=== PATIENT | male | born 1960 | race Caucasian/White ===

== ENCOUNTER 2021-06-13 13:43 | Emergency (ER) ==
[2021-06-13 14:27] LABS: #Basophils 0.1 thou/uL (0.0-0.2); #Eosinphils 0.3 thou/uL (0.0-0.7); #Lymphocytes 1.2 thou/uL (1.20-3.40); #Monocytes 0.6 thou/uL (0.11-0.59); #Neutrophils 5.2 thou/uL (1.40-6.50); %Basophils 1.2 % (0.0-1.0); %Eosinophils 3.5 % (0.0-10.0); %Lymphocytes 16.2 % (21.0-51.0); %Monocytes 8.1 % (0.0-10.0); Hemoglobin 15.8 g/dL (14.0-18.0); Mean Corpuscular HGB CONC 33.3 g/dL (32.0-36.0); Mean Corpuscular Hemoglobin 30.6 pg (27.0-31.0); Mean Corpuscular Volume 91.8 fL (78.0-98.0); Mean Platelet Volume 7.8 fL (7.4-10.4); Platelet Count 286 thou/uL (130-400); RBC Distribution Width 12.7 % (11.5-14.5); Red Blood Cell (RBC) Count 5.15 mill/uL (4.70-6.10); White Blood Cell (WBC) Count 7.4 thou/uL (4.8-10.8)
[2021-06-13 14:50] LABS: ALT (SGPT) 21 U/L (8-55); AST (SGOT) 20 U/L (5-34); Albumin 4.3 g/dL (3.4-4.8); Alkaline Phosphatase 113 U/L (40-110); Anion Gap 15 mmol/L (10-20); BUN (Urea Nitrogen) 14 mg/dL (8.4-25.7); Bilirubin, Total 0.4 mg/dL (0.2-1.2); Calc. Creatinine Clearance 0 mL/min (70-130); Calcium 9.2 mg/dL (7.8-10.44); Carbon Dioxide 25 mmol/L (23-31); Chloride 101 mmol/L (98-107); Globulin 3.1 g/dL (2.4-3.5); Glucose 133 mg/dL (80-115); Potassium 3.7 mmol/L (3.5-5.1); Protein, Total 7.4 g/dL (5.8-8.1); Sodium 137 mmol/L (136-145)
[2021-06-13 16:50] LABS: Bilirubin Negative (Negative); Blood, Urine Negative (Negative); Clarity Clear (Clear); Glucose, Urine (Dipstick) Normal (Negative); Ketone, Urine Negative (Negative); Leukocyte Negative Leu/uL (Negative); Nitrite Negative (Negative); Protein, Urine (Dipstick) Negative (Neg-Trace); Specific Gravity, Urine 1.014 (1.002-1.036); Urobilinogen Normal mg/dL (Less than 2)
[2021-06-14 12:02] LABS: SARS-CoV-2 PCR by NAA Not Detected (NotDetected)
== END 2021-06-13 17:32 | disposition home or self-care (01) ==
LOC: ERS 13:43
DX: R53.83 Other fatigue (principal); E78.5 Hyperlipidemia, unspecified; I10 Essential (primary) hypertension; I25.2 Old myocardial infarction; Z20.822 Contact with and (suspected) exposure to COVID-19; Z87.891 Personal history of nicotine dependence; Z79.899 Other long term (current) drug therapy
CPT/HCPCS: 36415; 71045; 80053; 81003; 83880; 84484; 85025; 93005; U0003; U0005

== ENCOUNTER 2021-09-23 06:13 | Emergency (ER) | payer BC, SELFPAY ==
[2021-09-23 07:05] LABS: #Eosinphils 0.1 thou/uL (0.0-0.7); #Monocytes 0.5 thou/uL (0.11-0.59); #Neutrophils 3.9 thou/uL (1.40-6.50); %Basophils 0.6 % (0.0-1.0); %Eosinophils 2.4 % (0.0-10.0); %Lymphocytes 17.5 % (21.0-51.0); %Monocytes 9.1 % (0.0-10.0); %Neutrophils 70.4 % (42.0-75.0); Hemoglobin 15.8 g/dL (14.0-18.0); Mean Corpuscular HGB CONC 33.8 g/dL (32.0-36.0); Mean Corpuscular Hemoglobin 31.9 pg (27.0-31.0); Mean Corpuscular Volume 94.4 fL (78.0-98.0); Platelet Count 319 thou/uL (130-400); RBC Distribution Width 12.3 % (11.5-14.5); Red Blood Cell (RBC) Count 4.95 mill/uL (4.70-6.10); White Blood Cell (WBC) Count 5.5 thou/uL (4.8-10.8)
[2021-09-23 07:33] LABS: ALT (SGPT) 19 U/L (8-55); AST (SGOT) 20 U/L (5-34); Albumin 4.1 g/dL (3.4-4.8); Alkaline Phosphatase 88 U/L (40-110); Anion Gap 15 mmol/L (10-20); BUN (Urea Nitrogen) 17 mg/dL (8.4-25.7); Bilirubin, Total 0.5 mg/dL (0.2-1.2); CK (CPK) 126 U/L (30-200); Calc. Creatinine Clearance 0 mL/min (70-130); Calcium 9.6 mg/dL (7.8-10.44); Carbon Dioxide 26 mmol/L (23-31); Chloride 97 mmol/L (98-107); Globulin 3.5 g/dL (2.4-3.5); Glucose 108 mg/dL (80-115); Potassium 3.6 mmol/L (3.5-5.1); Protein, Total 7.6 g/dL (5.8-8.1); Sodium 134 mmol/L (136-145)
[2021-09-23 08:06] LABS: Bilirubin Negative (Negative); Blood, Urine Negative (Negative); Clarity Clear (Clear); Glucose, Urine (Dipstick) Normal (Negative); Ketone, Urine Negative (Negative); Leukocyte Negative Leu/uL (Negative); Nitrite Negative (Negative); Protein, Urine (Dipstick) 10 mg/dL (Neg-Trace); Specific Gravity, Urine 1.009 (1.002-1.036); Urobilinogen Normal mg/dL (Less than 2); pH, Urine 6.5 (5.0-9.0)
[2021-09-23 15:13] LABS: SARS-CoV-2 PCR by NAA Not Detected (NotDetected)
== END 2021-09-23 10:23 | disposition home or self-care (01) ==
LOC: ERS 06:13
DX: R30.0 Dysuria (principal); R05.9 Cough, unspecified; Z20.822 Contact with and (suspected) exposure to COVID-19; I10 Essential (primary) hypertension; E78.5 Hyperlipidemia, unspecified; I25.2 Old myocardial infarction; Z87.891 Personal history of nicotine dependence
CPT/HCPCS: 36415; 71045; 80053; 81003; 82550; 83880; 84484; 85025; 87086; 93005; U0003; U0005

== ENCOUNTER 2022-03-03 07:38 | Inpatient (IN) | payer BC ==
[2022-03-03] MEDS ORDERED: Ketorolac Tromethamine 30 MG/ML VIAL ONE (08:32)
[2022-03-03 09:22] LABS: #Eosinphils 0.1 thou/uL (0.0-0.7); #Lymphocytes 0.4 thou/uL (1.20-3.40); #Monocytes 0.8 thou/uL (0.11-0.59); #Neutrophils 9.5 thou/uL (1.40-6.50); %Basophils 0.2 % (0.0-1.0); %Eosinophils 0.6 % (0.0-10.0); %Monocytes 7.1 % (0.0-10.0); %Neutrophils 88.1 % (42.0-75.0); ALT (SGPT) 26 U/L (8-55); AST (SGOT) 23 U/L (5-34); Alkaline Phosphatase 85 U/L (40-110); Anion Gap 16 mmol/L (10-20); BUN (Urea Nitrogen) 23 mg/dL (8.4-25.7); Bilirubin, Total 0.7 mg/dL (0.2-1.2); Calc. Creatinine Clearance 0 mL/min (70-130); Calcium 9.6 mg/dL (7.8-10.44); Carbon Dioxide 22 mmol/L (23-31); Chloride 100 mmol/L (98-107); Estimated GFR 30; Glucose 104 mg/dL (80-115); Hemoglobin 17.1 g/dL (14.0-18.0); Mean Corpuscular HGB CONC 33.6 g/dL (32.0-36.0); Mean Corpuscular Hemoglobin 33.2 pg (27.0-31.0); Mean Corpuscular Volume 98.7 fL (78.0-98.0); Platelet Count 171 thou/uL (130-400); Potassium 4.2 mmol/L (3.5-5.1); Red Blood Cell (RBC) Count 5.15 mill/uL (4.70-6.10); Sodium 134 mmol/L (136-145); White Blood Cell (WBC) Count 10.8 thou/uL (4.8-10.8)
[2022-03-03 09:34] LABS: PTT 27.1 sec (22.9-36.1); Prothrombin Time 13.3 sec (12.0-14.7)
[2022-03-03 09:36] LABS: D-Dimer Test 0.59 *mcg/mL (0.27-0.43)
[2022-03-03] MEDS ORDERED: Aspirin Chewable 81 MG TAB ONE (10:23)
[2022-03-03] MEDS ORDERED: Azithromycin 500 MG VIAL ONE (10:36)
[2022-03-03] MEDS ORDERED: cefTRIAXone\\ROCEPHIN 2 GM VIAL ONE (10:36)
[2022-03-03] MEDS ORDERED: cefTRIAXone\\ROCEPHIN 1 GM in Sodium Chloride 0.9% 100 ML IVPB SCH (11:00)
[2022-03-03 11:01] LABS: SARS-CoV-2 NAA Rapid Test Not Detected (NotDetected)
[2022-03-03 12:14] LABS: Troponin I 0.027 ng/mL (< 0.028)
[2022-03-03] MEDS ORDERED: Acetaminophen 325 MG TAB PO PRN (12:23)
[2022-03-03 13:52] VITALS: BMI 33.1
[2022-03-03 15:01] LABS: Troponin I 0.026 ng/mL (< 0.028)
[2022-03-03] MEDS ORDERED: Iopamidol-370 76% 500 ML 1 ML ONE (15:34)
[2022-03-03 17:25] LABS: Legionella Urinary Ag Negative (Negative); Strep pneumo Urine Ag NEGATIVE (NEGATIVE)
[2022-03-03] MEDS: Melatonin 3 MG TAB PO PRN (21:32)
[2022-03-03] MEDS: Sacubitril 49 MG/Valsartan 51 MG TABLET PO SCH (21:32)
[2022-03-04 04:28] LABS: #Eosinphils 0.1 thou/uL (0.0-0.7); #Lymphocytes 1.2 thou/uL (1.20-3.40); #Monocytes 0.7 thou/uL (0.11-0.59); #Neutrophils 8.4 thou/uL (1.40-6.50); %Basophils 0.4 % (0.0-1.0); %Eosinophils 1.2 % (0.0-10.0); %Lymphocytes 11.1 % (21.0-51.0); %Monocytes 7.1 % (0.0-10.0); %Neutrophils 80.3 % (42.0-75.0); Hemoglobin 14.9 g/dL (14.0-18.0); Mean Corpuscular HGB CONC 34.1 g/dL (32.0-36.0); Mean Corpuscular Hemoglobin 33.9 pg (27.0-31.0); Mean Corpuscular Volume 99.3 fL (78.0-98.0); Mean Platelet Volume 8.5 fL (7.4-10.4); Platelet Count 136 thou/uL (130-400); RBC Distribution Width 11.9 % (11.5-14.5); Red Blood Cell (RBC) Count 4.38 mill/uL (4.70-6.10); White Blood Cell (WBC) Count 10.5 thou/uL (4.8-10.8)
[2022-03-04 04:53] LABS: Anion Gap 12 mmol/L (10-20); BUN (Urea Nitrogen) 17 mg/dL (8.4-25.7); Calc. Creatinine Clearance 59 mL/min (70-130); Calcium 8.6 mg/dL (7.8-10.44); Carbon Dioxide 25 mmol/L (23-31); Chloride 102 mmol/L (98-107); Estimated GFR 41; Glucose 102 mg/dL (80-115); Potassium 3.8 mmol/L (3.5-5.1); Sodium 135 mmol/L (136-145)
[2022-03-04] MEDS: Aspirin Chewable 81 MG TAB PO SCH (09:27)
[2022-03-04] MEDS: Clopidogrel Bisulfate 75 MG TAB PO SCH (09:27)
[2022-03-04] MEDS: Sacubitril 49 MG/Valsartan 51 MG TABLET PO SCH ×2 (09:27→20:24)
[2022-03-04] MEDS: cefTRIAXone\\ROCEPHIN 1 GM in Sodium Chloride 0.9% 100 ML IVPB SCH (09:27)
[2022-03-04] MEDS: Azithromycin 500 MG in Sodium Chloride 0.9% 250 ML 250 ML IVPB SCH (12:18)
[2022-03-04] MEDS ORDERED: Ondansetron PF 4 MG/2 ML Vial IVP PRN (14:33)
[2022-03-04] MEDS: Melatonin 3 MG TAB PO PRN (20:24)
[2022-03-05 04:27] LABS: #Eosinphils 0.2 thou/uL (0.0-0.7); #Lymphocytes 1.2 thou/uL (1.20-3.40); #Monocytes 0.5 thou/uL (0.11-0.59); #Neutrophils 5.6 thou/uL (1.40-6.50); %Basophils 0.6 % (0.0-1.0); %Eosinophils 2.3 % (0.0-10.0); %Lymphocytes 15.4 % (21.0-51.0); %Monocytes 7.2 % (0.0-10.0); %Neutrophils 74.6 % (42.0-75.0); Hemoglobin 15.6 g/dL (14.0-18.0); Mean Corpuscular HGB CONC 33.7 g/dL (32.0-36.0); Mean Corpuscular Hemoglobin 33.6 pg (27.0-31.0); Mean Corpuscular Volume 99.8 fL (78.0-98.0); Mean Platelet Volume 8.8 fL (7.4-10.4); Platelet Count 147 thou/uL (130-400); RBC Distribution Width 12.1 % (11.5-14.5); Red Blood Cell (RBC) Count 4.65 mill/uL (4.70-6.10); White Blood Cell (WBC) Count 7.6 thou/uL (4.8-10.8)
[2022-03-05 04:54] LABS: Anion Gap 15 mmol/L (10-20); BUN (Urea Nitrogen) 10 mg/dL (8.4-25.7); Calc. Creatinine Clearance 72 mL/min (70-130); Carbon Dioxide 24 mmol/L (23-31); Chloride 102 mmol/L (98-107); Estimated GFR 52; Glucose 98 mg/dL (80-115); Potassium 3.6 mmol/L (3.5-5.1); Sodium 137 mmol/L (136-145)
[2022-03-05] MEDS ORDERED: hydrALAZINE 20 MG/ML VIAL SLOW IVP PRN (09:02)
[2022-03-05] MEDS ORDERED: hydrALAZINE 25 MG TAB PO PRN (09:03)
[2022-03-05] MEDS: Furosemide 40 MG TAB PO SCH (10:11)
[2022-03-05] MEDS: Aspirin Chewable 81 MG TAB PO SCH (10:11)
[2022-03-05] MEDS: NIFEdipine XL 90 MG TAB PO SCH (10:12)
[2022-03-05] MEDS: Clopidogrel Bisulfate 75 MG TAB PO SCH (10:12)
[2022-03-05] MEDS: Potassium Chloride 20 MEQ TAB PO SCH (10:12)
[2022-03-05] MEDS: cefTRIAXone\\ROCEPHIN 1 GM in Sodium Chloride 0.9% 100 ML IVPB SCH (10:12)
[2022-03-05] MEDS: Sacubitril 49 MG/Valsartan 51 MG TABLET PO SCH ×2 (10:12→21:13)
[2022-03-05] MEDS: Azithromycin 500 MG in Sodium Chloride 0.9% 250 ML 250 ML IVPB SCH (12:19)
[2022-03-05] MEDS ORDERED: Metoclopramide HCl 10 MG TAB PO PRN (21:00)
[2022-03-05] MEDS: Carvedilol 25 MG TAB PO SCH (21:13)
[2022-03-05] MEDS: Melatonin 3 MG TAB PO PRN (21:13)
[2022-03-06 04:25] LABS: #Eosinphils 0.2 thou/uL (0.0-0.7); #Lymphocytes 1.1 thou/uL (1.20-3.40); #Monocytes 0.5 thou/uL (0.11-0.59); #Neutrophils 4.6 thou/uL (1.40-6.50); %Basophils 0.5 % (0.0-1.0); %Eosinophils 3.1 % (0.0-10.0); %Lymphocytes 17.1 % (21.0-51.0); %Monocytes 7.7 % (0.0-10.0); %Neutrophils 71.6 % (42.0-75.0); Hemoglobin 15.7 g/dL (14.0-18.0); Mean Corpuscular HGB CONC 33.8 g/dL (32.0-36.0); Mean Corpuscular Hemoglobin 33.3 pg (27.0-31.0); Mean Corpuscular Volume 98.6 fL (78.0-98.0); Mean Platelet Volume 8.6 fL (7.4-10.4); Platelet Count 153 thou/uL (130-400); RBC Distribution Width 12.1 % (11.5-14.5); Red Blood Cell (RBC) Count 4.71 mill/uL (4.70-6.10); White Blood Cell (WBC) Count 6.4 thou/uL (4.8-10.8)
[2022-03-06 04:50] LABS: Anion Gap 15 mmol/L (10-20); BUN (Urea Nitrogen) 12 mg/dL (8.4-25.7); Calc. Creatinine Clearance 68 mL/min (70-130); Calcium 8.9 mg/dL (7.8-10.44); Carbon Dioxide 23 mmol/L (23-31); Chloride 102 mmol/L (98-107); Estimated GFR 48; Glucose 103 mg/dL (80-115); Potassium 3.6 mmol/L (3.5-5.1); Sodium 136 mmol/L (136-145)
[2022-03-06] MEDS: Lansoprazole 3 MG/ML ORAL SUSPENSION PO SCH (10:01)
[2022-03-06] MEDS: Stress 600 With Zinc 1 TAB PO SCH (10:01)
[2022-03-06] MEDS: Aspirin Chewable 81 MG TAB PO SCH (10:01)
[2022-03-06] MEDS: Sacubitril 49 MG/Valsartan 51 MG TABLET PO SCH ×2 (10:01→20:19)
[2022-03-06] MEDS: Furosemide 40 MG TAB PO SCH (10:02)
[2022-03-06] MEDS: Carvedilol 25 MG TAB PO SCH ×2 (10:02→20:19)
[2022-03-06] MEDS: Potassium Chloride 20 MEQ TAB PO SCH (10:02)
[2022-03-06] MEDS: NIFEdipine XL 90 MG TAB PO SCH (10:02)
[2022-03-06] MEDS: Ferrous Sulfate 325 MG TAB PO SCH (10:02)
[2022-03-06] MEDS: Clopidogrel Bisulfate 75 MG TAB PO SCH (10:02)
[2022-03-06] MEDS: cefTRIAXone\\ROCEPHIN 1 GM in Sodium Chloride 0.9% 100 ML IVPB SCH (10:32)
[2022-03-06] MEDS: Azithromycin 500 MG in Sodium Chloride 0.9% 250 ML 250 ML IVPB SCH (11:11)
[2022-03-06] MEDS: Melatonin 3 MG TAB PO PRN (20:19)
[2022-03-07 04:39] LABS: #Basophils 0.1 thou/uL (0.0-0.2); #Eosinphils 0.2 thou/uL (0.0-0.7); #Lymphocytes 1.2 thou/uL (1.20-3.40); #Monocytes 0.6 thou/uL (0.11-0.59); #Neutrophils 3.7 thou/uL (1.40-6.50); %Basophils 0.9 % (0.0-1.0); %Eosinophils 3.4 % (0.0-10.0); %Lymphocytes 20.2 % (21.0-51.0); %Monocytes 10.8 % (0.0-10.0); %Neutrophils 64.6 % (42.0-75.0); Hemoglobin 15.7 g/dL (14.0-18.0); Mean Corpuscular HGB CONC 32.9 g/dL (32.0-36.0); Mean Corpuscular Hemoglobin 32.5 pg (27.0-31.0); Mean Corpuscular Volume 98.7 fL (78.0-98.0); Mean Platelet Volume 8.7 fL (7.4-10.4); Platelet Count 180 thou/uL (130-400); RBC Distribution Width 11.9 % (11.5-14.5); Red Blood Cell (RBC) Count 4.82 mill/uL (4.70-6.10); White Blood Cell (WBC) Count 5.8 thou/uL (4.8-10.8)
[2022-03-07 05:25] LABS: Anion Gap 17 mmol/L (10-20); BUN (Urea Nitrogen) 10 mg/dL (8.4-25.7); Calc. Creatinine Clearance 63 mL/min (70-130); Calcium 9.1 mg/dL (7.8-10.44); Carbon Dioxide 25 mmol/L (23-31); Chloride 99 mmol/L (98-107); Estimated GFR 45; Glucose 99 mg/dL (80-115); Sodium 137 mmol/L (136-145)
[2022-03-07] MEDS: Stress 600 With Zinc 1 TAB PO SCH (09:46)
[2022-03-07] MEDS: Lansoprazole 3 MG/ML ORAL SUSPENSION PO SCH (09:46)
[2022-03-07] MEDS: Sacubitril 49 MG/Valsartan 51 MG TABLET PO SCH (09:46)
[2022-03-07] MEDS: Aspirin Chewable 81 MG TAB PO SCH (09:46)
[2022-03-07] MEDS: Carvedilol 25 MG TAB PO SCH (09:46)
[2022-03-07] MEDS: Ferrous Sulfate 325 MG TAB PO SCH (09:46)
[2022-03-07] MEDS: NIFEdipine XL 90 MG TAB PO SCH (09:46)
[2022-03-07] MEDS: Potassium Chloride 20 MEQ TAB PO SCH (09:46)
[2022-03-07] MEDS: Clopidogrel Bisulfate 75 MG TAB PO SCH (09:46)
[2022-03-07] MEDS: Furosemide 40 MG TAB PO SCH (09:47)
[2022-03-07] MEDS: cefTRIAXone\\ROCEPHIN 1 GM in Sodium Chloride 0.9% 100 ML IVPB SCH (11:16)
[2022-03-07] MEDS: Azithromycin 500 MG in Sodium Chloride 0.9% 250 ML 250 ML IVPB SCH (12:07)
[2022-03-07 17:06] VITALS: BP 133/71; TEMP 98.1
== END 2022-03-07 18:10 | disposition home or self-care (01) | DRG 194 ==
LOC: ERS 07:38 → ERHOLD 10:58 → 2NO 14:53
PROVIDERS: ADMIT Hospitalist; ATTEND Hospitalist
DX: J18.9 Pneumonia, unspecified organism (principal); R04.2 Hemoptysis; N17.9 Acute kidney failure, unspecified; E87.1 Hypo-osmolality and hyponatremia; I13.0 Hypertensive heart and chronic kidney disease with heart failure and stage 1 through stage 4 chronic kidney disease, or unspecified chronic kidney disease; I50.22 Chronic systolic (congestive) heart failure; Z20.822 Contact with and (suspected) exposure to COVID-19; I25.5 Ischemic cardiomyopathy; N18.30 Chronic kidney disease, stage 3 unspecified; I25.2 Old myocardial infarction; Z95.5 Presence of coronary angioplasty implant and graft; Z86.73 Personal history of transient ischemic attack (TIA), and cerebral infarction without residual deficits; Z87.891 Personal history of nicotine dependence; Z79.02 Long term (current) use of antithrombotics/antiplatelets; Z79.01 Long term (current) use of anticoagulants; Z79.899 Other long term (current) drug therapy; Z79.82 Long term (current) use of aspirin
CPT/HCPCS: 36415; 71045; 71275; 80048; 80053; 82553; 83605; 83880; 84484; 85025; 85379; 85610; 85730; 87040; 87070; 87116; 87205; 87206; 87449; 87536; 87804; 87899; 93005; 96374; 96375; J0360; J0456; J0696; J1885; J3490; J7050; Q9967; U0002

== ENCOUNTER 2022-03-26 14:17 | Outpatient (CLI) | payer BC | END 2022-03-26 14:18 | disposition home or self-care (01) | LOC: BICRAD 14:17 | PROVIDERS: ATTEND Nurse Practitioner Family | DX: J18.9 Pneumonia, unspecified organism (principal) | CPT/HCPCS: 71046 ==

== ENCOUNTER 2022-05-08 13:19 | Outpatient (CLI) | payer BC | END 2022-05-08 13:20 | disposition home or self-care (01) | LOC: BICULT 13:19 | PROVIDERS: ATTEND Internal Medicine Cardiovascular Disease | DX: I10 Essential (primary) hypertension (principal) | CPT/HCPCS: 76770; 93975 ==

== ENCOUNTER 2022-06-17 22:41 | Emergency (ER) | payer BC ==
[2022-06-17] MEDS ORDERED: Ketorolac Tromethamine 30 MG/ML VIAL ONE (23:27)
== END 2022-06-18 00:04 | disposition home or self-care (01) ==
LOC: ERS 22:41
DX: B34.9 Viral infection, unspecified (principal); I10 Essential (primary) hypertension; I25.2 Old myocardial infarction; E78.5 Hyperlipidemia, unspecified; Z87.891 Personal history of nicotine dependence; Z86.73 Personal history of transient ischemic attack (TIA), and cerebral infarction without residual deficits; Z95.5 Presence of coronary angioplasty implant and graft
CPT/HCPCS: 71045; 93005; 96372; J1885

== ENCOUNTER 2022-11-10 03:34 | Emergency (ER) | payer BC | END 2022-11-10 04:40 | disposition home or self-care (01) | LOC: ERS 03:34 | DX: R05.9 Cough, unspecified (principal); E78.5 Hyperlipidemia, unspecified; I10 Essential (primary) hypertension; Z20.822 Contact with and (suspected) exposure to COVID-19; Z87.891 Personal history of nicotine dependence; Z79.82 Long term (current) use of aspirin | CPT/HCPCS: 71045; U0003; U0005 ==

== ENCOUNTER 2023-01-08 14:54 | Outpatient (CLI) | payer BC, OTHER | END 2023-01-08 14:55 | disposition home or self-care (01) | LOC: RAD 14:54 | PROVIDERS: ATTEND Nurse Practitioner Family | DX: R09.89 Other specified symptoms and signs involving the circulatory and respiratory systems (principal); I50.43 Acute on chronic combined systolic (congestive) and diastolic (congestive) heart failure | CPT/HCPCS: 71046 ==

== ENCOUNTER 2023-01-22 11:14 | Inpatient (IN) | payer BC, OTHER ==
[2023-01-22] MEDS ORDERED: Iopamidol-370 76% 500 ML MDV (1 ML CHARGE) ONE (11:22)
[2023-01-22] MEDS ORDERED: Ipratropium/Albuterol 3 ML NEB ONE (11:54)
[2023-01-22] MEDS ORDERED: Morphine 4 MG/ML VIAL ONE (12:36)
[2023-01-22] MEDS ORDERED: Ondansetron PF 4 MG/2 ML Vial ONE (12:36)
[2023-01-22 12:48] LABS: #Eosinphils 0.1 thou/uL (0.0-0.7); #Monocytes 0.7 thou/uL (0.11-0.59); #Neutrophils 2.5 thou/uL (1.40-6.50); %Basophils 0.8 % (0.0-1.0); %Eosinophils 2.9 % (0.0-10.0); %Lymphocytes 12.1 % (21.0-51.0); %Monocytes 17.2 % (0.0-10.0); %Neutrophils 66.5 % (42.0-75.0); Hemoglobin 17.2 g/dL (14.0-18.0); Mean Corpuscular HGB CONC 34.7 g/dL (32.0-36.0); Mean Corpuscular Hemoglobin 32.1 pg (27.0-31.0); Mean Corpuscular Volume 92.4 fl (78.0-98.0); Platelet Count 228 10x3/uL (130-400); RBC Distribution Width 13.3 % (11.5-14.5); Red Blood Cell (RBC) Count 5.36 mill/uL (4.70-6.10); White Blood Cell (WBC) Count 3.8 10x3/uL (4.8-10.8)
[2023-01-22 13:08] LABS: ALT (SGPT) 17 U/L (8-55); AST (SGOT) 23 U/L (5-34); Albumin 3.7 g/dL (3.4-4.8); Alkaline Phosphatase 82 U/L (40-110); Anion Gap 18 mmol/L (10-20); BUN (Urea Nitrogen) 16 mg/dL (8.4-25.7); Bilirubin, Total 0.7 mg/dL (0.2-1.2); Calc. Creatinine Clearance 0 mL/min (70-130); Carbon Dioxide 22 mmol/L (23-31); Chloride 97 mmol/L (98-107); Estimated GFR 46; Globulin 3.1 g/dL (2.4-3.5); Glucose 98 mg/dL (80-115); Lipase 23 U/L (8-78); Magnesium 1.4 mg/dL (1.6-2.6); Potassium 3.3 mmol/L (3.5-5.1); Protein, Total 6.8 g/dL (5.8-8.1); Sodium 134 mmol/L (136-145)
[2023-01-22] MEDS ORDERED: Potassium Chloride 20 MEQ TAB ONE (14:33)
[2023-01-22] MEDS ORDERED: cefTRIAXone (ROCEPHIN) 1 GM VIAL ONE (15:32)
[2023-01-22] MEDS ORDERED: Furosemide 40 MG/4 ML VIAL ONE (15:39)
[2023-01-22] MEDS ORDERED: Magnesium 2 GM/50 ML BAG (IN WATER) ONE (15:39)
[2023-01-22 16:25] LABS: CKMB 3.5 ng/mL (0-6.6)
[2023-01-22] MEDS ORDERED: Vancomycin 1 GM/200 ML (FROZEN) BAG ONE (16:58)
[2023-01-22] MEDS ORDERED: Acetaminophen 325 MG TAB PO PRN (18:14)
[2023-01-22] MEDS ORDERED: Ipratropium/Albuterol 3 ML NEB NEB PRN (18:23)
[2023-01-22] MEDS ORDERED: methylPREDNISolone Sod Succ 40 MG VIAL IVP SCH ×2 (19:45→23:59)
[2023-01-22] MEDS ORDERED: predniSONE 20 MG TAB PO SCH (20:00)
[2023-01-22] MEDS ORDERED: Acetaminophen 500 MG TAB PO PRN (20:06)
[2023-01-22 20:09] VITALS: BMI 30.9
[2023-01-22] MEDS ORDERED: Ipratropium/Albuterol 3 ML NEB NEB SCH (20:15)
[2023-01-22] MEDS ORDERED: Acetaminophen 500 MG TAB PO SCH (20:15)
[2023-01-22 20:18] LABS: Troponin I 0.021 ng/mL (< 0.028)
[2023-01-22] MEDS ORDERED: Vancomycin 1 GM in Premix Bag 1 BAG IVPB SCH (21:00)
[2023-01-22 21:33] LABS: Troponin I 0.022 ng/mL (< 0.028)
[2023-01-22] MEDS ORDERED: VANCOMYCIN 750 MG/250 ML BAG 750 MG in Sodium Chloride 0.9% 250 ML 250 ML IVPB SCH (22:00)
[2023-01-22] MEDS ORDERED: Vancomycin HCl 750 MG in Sodium Chloride 0.9% 250 ML 250 ML IVPB SCH (22:00)
[2023-01-22] MEDS ORDERED: Carvedilol 25 MG TAB PO SCH (22:00)
[2023-01-22] MEDS: Cefepime 1 GM in Sodium Chloride 0.9% 100 ML IVPB SCH (22:01)
[2023-01-22] MEDS ORDERED: Ondansetron ODT 4 MG TAB PO PRN (23:18)
[2023-01-22] MEDS ORDERED: Benzonatate 100 MG CAP PO PRN (23:18)
[2023-01-22] MEDS ORDERED: Ondansetron PF 4 MG/2 ML Vial IVP PRN (23:18)
[2023-01-23 04:22] LABS: #Monocytes 0.2 thou/uL (0.11-0.59); %Basophils 1.1 % (0.0-1.0); %Eosinophils 0.4 % (0.0-10.0); %Lymphocytes 14.2 % (21.0-51.0); %Monocytes 8.6 % (0.0-10.0); %Neutrophils 75.3 % (42.0-75.0); Hemoglobin 15.7 g/dL (14.0-18.0); Mean Corpuscular Hemoglobin 32.2 pg (27.0-31.0); Mean Corpuscular Volume 94.7 fl (78.0-98.0); Platelet Count 216 10x3/uL (130-400); RBC Distribution Width 13.3 % (11.5-14.5); Red Blood Cell (RBC) Count 4.88 mill/uL (4.70-6.10); White Blood Cell (WBC) Count 2.7 10x3/uL (4.8-10.8)
[2023-01-23] MEDS ORDERED: Electrolyte Replacement Protocol 1 EACH FS SCH (04:30)
[2023-01-23 04:46] LABS: Anion Gap 15 mmol/L (10-20); BUN (Urea Nitrogen) 16 mg/dL (8.4-25.7); Calc. Creatinine Clearance 54 mL/min (70-130); Carbon Dioxide 26 mmol/L (23-31); Chloride 97 mmol/L (98-107); Estimated GFR 43; Glucose 115 mg/dL (80-115); Magnesium 1.8 mg/dL (1.6-2.6); Potassium 3.8 mmol/L (3.5-5.1); Sodium 134 mmol/L (136-145)
[2023-01-23] MEDS ORDERED: Magnesium 2 GM/50 ML(in water) 2 GM in Premix Bag 1 BAG IVPB SCH (08:00)
[2023-01-23] MEDS ORDERED: predniSONE 20 MG TAB PO SCH (08:00)
[2023-01-23] MEDS ORDERED: Pantoprazole 40 MG GRANULES PACKET PO SCH (09:00)
[2023-01-23] MEDS: Furosemide 40 MG TAB PO SCH ×2 (09:05→13:29)
[2023-01-23] MEDS: Sacubitril 49 MG/Valsartan 51 MG TABLET PO SCH ×2 (09:05→20:26)
[2023-01-23] MEDS: Cefepime 1 GM in Sodium Chloride 0.9% 100 ML IVPB SCH ×2 (09:05→20:26)
[2023-01-23] MEDS: Carvedilol 25 MG TAB PO SCH ×2 (09:06→17:02)
[2023-01-23] MEDS: Ezetimibe 10 MG TAB PO SCH (09:06)
[2023-01-23] MEDS: NIFEdipine XL 90 MG TAB PO SCH (09:06)
[2023-01-23] MEDS: Clopidogrel Bisulfate 75 MG TAB PO SCH (09:06)
[2023-01-23] MEDS: hydrALAZINE 25 MG TAB PO SCH ×3 (09:07→17:02)
[2023-01-23] MEDS: GUAIFENESIN SF SOLN 200 MG/10 ML UDCUP PO PRN ×3 (11:38→20:26)
[2023-01-23] MEDS ORDERED: VANCOMYCIN 1.25 GM/250 ML BAG 1.25 GM in Premix Bag 1 BAG IVPB SCH (22:00)
[2023-01-24] MEDS: Furosemide 40 MG TAB PO SCH ×2 (08:28→13:05)
[2023-01-24] MEDS: hydrALAZINE 25 MG TAB PO SCH ×3 (08:28→16:15)
[2023-01-24] MEDS: Clopidogrel Bisulfate 75 MG TAB PO SCH (08:29)
[2023-01-24] MEDS: Carvedilol 25 MG TAB PO SCH ×2 (08:29→16:15)
[2023-01-24] MEDS: Sacubitril 49 MG/Valsartan 51 MG TABLET PO SCH ×2 (08:29→21:13)
[2023-01-24] MEDS: predniSONE 20 MG TAB PO SCH (08:29)
[2023-01-24] MEDS: NIFEdipine XL 90 MG TAB PO SCH (08:29)
[2023-01-24] MEDS: Ezetimibe 10 MG TAB PO SCH (08:29)
[2023-01-24] MEDS: Cefepime 1 GM in Sodium Chloride 0.9% 100 ML IVPB SCH ×2 (08:30→21:13)
[2023-01-24] MEDS: GUAIFENESIN SF SOLN 200 MG/10 ML UDCUP PO PRN ×2 (08:41→16:17)
[2023-01-25] MEDS: Carvedilol 25 MG TAB PO SCH ×2 (09:53→18:21)
[2023-01-25] MEDS: NIFEdipine XL 90 MG TAB PO SCH (09:53)
[2023-01-25] MEDS: Clopidogrel Bisulfate 75 MG TAB PO SCH (09:53)
[2023-01-25] MEDS: hydrALAZINE 25 MG TAB PO SCH ×3 (09:53→18:21)
[2023-01-25] MEDS: predniSONE 20 MG TAB PO SCH (09:54)
[2023-01-25] MEDS: Furosemide 40 MG TAB PO SCH ×2 (09:54→13:13)
[2023-01-25] MEDS: Ezetimibe 10 MG TAB PO SCH (09:54)
[2023-01-25] MEDS: Cefepime 1 GM in Sodium Chloride 0.9% 100 ML IVPB SCH ×2 (10:40→20:57)
[2023-01-25] MEDS: Sacubitril 49 MG/Valsartan 51 MG TABLET PO SCH ×2 (10:43→20:56)
[2023-01-26] MEDS: Cefepime 1 GM in Sodium Chloride 0.9% 100 ML IVPB SCH ×2 (08:51→20:15)
[2023-01-26] MEDS: hydrALAZINE 25 MG TAB PO SCH ×3 (08:52→17:17)
[2023-01-26] MEDS: Carvedilol 25 MG TAB PO SCH ×2 (08:52→17:17)
[2023-01-26] MEDS: predniSONE 20 MG TAB PO SCH (08:52)
[2023-01-26] MEDS: NIFEdipine XL 90 MG TAB PO SCH (08:53)
[2023-01-26] MEDS: Furosemide 40 MG TAB PO SCH ×2 (08:53→15:01)
[2023-01-26] MEDS: Ezetimibe 10 MG TAB PO SCH (08:53)
[2023-01-26] MEDS: Clopidogrel Bisulfate 75 MG TAB PO SCH (08:53)
[2023-01-26] MEDS: Sacubitril 49 MG/Valsartan 51 MG TABLET PO SCH ×2 (11:08→20:15)
[2023-01-27] MEDS ORDERED: predniSONE 20 MG TAB PO SCH (08:00)
[2023-01-27] MEDS: Cefepime 1 GM in Sodium Chloride 0.9% 100 ML IVPB SCH (08:39)
[2023-01-27] MEDS: Ezetimibe 10 MG TAB PO SCH (08:40)
[2023-01-27] MEDS: hydrALAZINE 25 MG TAB PO SCH ×3 (08:40→16:59)
[2023-01-27] MEDS: Sacubitril 49 MG/Valsartan 51 MG TABLET PO SCH (08:41)
[2023-01-27] MEDS: Carvedilol 25 MG TAB PO SCH ×2 (08:41→16:59)
[2023-01-27] MEDS: Furosemide 40 MG TAB PO SCH ×2 (08:41→14:30)
[2023-01-27] MEDS: Clopidogrel Bisulfate 75 MG TAB PO SCH (08:41)
[2023-01-27] MEDS: NIFEdipine XL 90 MG TAB PO SCH (08:41)
[2023-01-27 08:56] LABS: #Monocytes 0.5 thou/uL (0.11-0.59); #Neutrophils 4.1 thou/uL (1.40-6.50); %Basophils 0.2 % (0.0-1.0); %Eosinophils 0.2 % (0.0-10.0); %Lymphocytes 23.1 % (21.0-51.0); %Monocytes 7.7 % (0.0-10.0); %Neutrophils 68.1 % (42.0-75.0); Hemoglobin 16.1 g/dL (14.0-18.0); Mean Corpuscular HGB CONC 34.3 g/dL (32.0-36.0); Mean Corpuscular Hemoglobin 32.3 pg (27.0-31.0); Mean Corpuscular Volume 94.2 fl (78.0-98.0); Mean Platelet Volume 10.2 fL (7.4-10.4); Platelet Count 243 10x3/uL (130-400); RBC Distribution Width 13.1 % (11.5-14.5); Red Blood Cell (RBC) Count 4.98 mill/uL (4.70-6.10)
[2023-01-27] MEDS ORDERED: Saccharomyces boulardii 250 MG CAP PO SCH (09:00)
[2023-01-27 09:16] LABS: Anion Gap 13 mmol/L (10-20); BUN (Urea Nitrogen) 29 mg/dL (8.4-25.7); Calc. Creatinine Clearance 53 mL/min (70-130); Calcium 8.6 mg/dL (7.8-10.44); Carbon Dioxide 27 mmol/L (23-31); Chloride 101 mmol/L (98-107); Estimated GFR 41; Glucose 80 mg/dL (80-115); Potassium 3.2 mmol/L (3.5-5.1); Sodium 138 mmol/L (136-145)
[2023-01-27] MEDS ORDERED: Potassium Chloride 20 MEQ TAB PO SCH (10:00)
[2023-01-27 16:50] VITALS: TEMP 97.4
[2023-01-27 16:59] VITALS: BP 159/75
== END 2023-01-27 17:20 | disposition home or self-care (01) | DRG 193 ==
LOC: ERS 11:14 → ERHOLD 15:54 → 2NO 19:18 → OBSVTOIN 01-23 02:22 → SURG B 01-24 20:56
PROVIDERS: ADMIT Internal Medicine; ATTEND Internal Medicine
DX: J18.9 Pneumonia, unspecified organism (principal); J96.01 Acute respiratory failure with hypoxia; I13.0 Hypertensive heart and chronic kidney disease with heart failure and stage 1 through stage 4 chronic kidney disease, or unspecified chronic kidney disease; N18.4 Chronic kidney disease, stage 4 (severe); I50.22 Chronic systolic (congestive) heart failure; Z20.822 Contact with and (suspected) exposure to COVID-19; I25.10 Atherosclerotic heart disease of native coronary artery without angina pectoris; I25.5 Ischemic cardiomyopathy; E78.5 Hyperlipidemia, unspecified; R77.8 Other specified abnormalities of plasma proteins; E87.6 Hypokalemia; E83.42 Hypomagnesemia; Y95 Nosocomial condition; I25.2 Old myocardial infarction; Z88.8 Allergy status to other drugs, medicaments and biological substances; Z79.02 Long term (current) use of antithrombotics/antiplatelets; Z79.899 Other long term (current) drug therapy; Z95.5 Presence of coronary angioplasty implant and graft; Z87.891 Personal history of nicotine dependence
CPT/HCPCS: 36415; 71045; 71275; 80048; 80053; 82553; 83605; 83690; 83735; 83880; 84145; 84443; 84484; 85025; 87040; 87070; 87081; 87086; 87205; 87633; 87635; 87798; 93005; 93798; 94640; 94760; 96365; 96367; 96375; 96376; G0378; J0692; J0696; J1940; J1956; J2270; J2405; J3370; J3370-JW; J3475; J3490; J7050; J7512; J7620; Q9967

== ENCOUNTER 2024-02-03 06:26 | Day surgery (SDC) | payer BC ==
[2024-02-02 11:16] VITALS: BMI 27.2
[2024-02-03] MEDS ORDERED: PROPOFOL 20 ML ONE (08:27)
[2024-02-03] MEDS ORDERED: Lidocaine 1% PF 5 ML VIAL ONE (09:05)
[2024-02-03] MEDS ORDERED: PHENYLEPHRINE-NS 100 MCG/ML 10 ML SYRINGE ONE (09:05)
== END 2024-02-03 10:11 | disposition home or self-care (01) ==
LOC: SDC 06:26
PROVIDERS: ATTEND Internal Medicine
PROC: 0DBK8ZZ Excision of Ascending Colon, Via Natural or Artificial Opening Endoscopic (ICD-10-PCS; principal; 2024-02-03)
PROC: 0DBL8ZZ Excision of Transverse Colon, Via Natural or Artificial Opening Endoscopic (ICD-10-PCS; principal; 2024-02-03)
DX: Z12.11 Encounter for screening for malignant neoplasm of colon (principal); D12.2 Benign neoplasm of ascending colon; D12.3 Benign neoplasm of transverse colon; K64.8 Other hemorrhoids; I13.0 Hypertensive heart and chronic kidney disease with heart failure and stage 1 through stage 4 chronic kidney disease, or unspecified chronic kidney disease; I50.9 Heart failure, unspecified; N18.9 Chronic kidney disease, unspecified; E78.00 Pure hypercholesterolemia, unspecified; I25.2 Old myocardial infarction; Z86.73 Personal history of transient ischemic attack (TIA), and cerebral infarction without residual deficits; Z79.82 Long term (current) use of aspirin; Z79.899 Other long term (current) drug therapy; Z87.891 Personal history of nicotine dependence
CPT/HCPCS: 88305; J2704

== ENCOUNTER 2025-04-21 10:53 | Outpatient (CLI) | payer MEDICARE | END 2025-04-21 10:54 | disposition home or self-care (01) | LOC: BICRAD 10:53 | PROVIDERS: ATTEND Nurse Practitioner Family | DX: K59.09 Other constipation (principal); I50.43 Acute on chronic combined systolic (congestive) and diastolic (congestive) heart failure; E87.1 Hypo-osmolality and hyponatremia | CPT/HCPCS: 36415; 74022; 80053; 81001; 85025 ==